=== PATIENT | male | born 1980 | race Caucasian/White ===

== ENCOUNTER 2025-01-18 15:53 | Outpatient (RCR) | payer BC, SELFPAY | END 2025-01-18 23:59 | disposition home or self-care (01) | LOC: RPT 15:53 | PROVIDERS: ATTENDING PHYSICIAN Family Medicine | DX: M76.892 Other specified enthesopathies of left lower limb, excluding foot (principal); Z73.6 Limitation of activities due to disability | CPT/HCPCS: 97110; 97112; 97162 ==

== ENCOUNTER 2025-02-19 09:33 | Outpatient (RCR) | payer BC, SELFPAY | END 2025-02-19 23:59 | disposition home or self-care (01) | LOC: RPT 09:33 | PROVIDERS: ATTENDING PHYSICIAN Family Medicine | DX: M76.892 Other specified enthesopathies of left lower limb, excluding foot (principal); Z73.6 Limitation of activities due to disability | CPT/HCPCS: 97110; 97112; 97140 ==

== ENCOUNTER 2025-03-12 12:32 | Outpatient (RCR) | payer BC, SELFPAY | END 2025-03-12 23:59 | disposition home or self-care (01) | LOC: RPT 12:32 | PROVIDERS: ATTENDING PHYSICIAN Family Medicine | DX: M76.892 Other specified enthesopathies of left lower limb, excluding foot (principal); Z73.6 Limitation of activities due to disability | CPT/HCPCS: 97110; 97140 ==